=== PATIENT | female | born 1940 | race Caucasian/White ===

== ENCOUNTER 2024-11-27 13:54 | Emergency (ER) | payer OTHER ==
[~2024-11-27] VITALS: Ht 167.6 cm; Wt 61.9 kg
[2024-11-27 14:05] VITALS: TEMP 97.6
--- NOTE | 2024-11-27 14:59 | Physician Documentation ---
History of Present Illness ~ Chief Complaint: Mechanical Fall Stated Complaint: TAILBONE PAIN Time Seen by MD: 14:18 Mode of Arrival: Ambulatory HPI 83-year-old female presents to the ED with a complaint of a fall one week ago. States she fell on her tailbone. She thought the pain would go away however it has persisted and therefore she presents to the ED for evaluation. He has been using a Voltaren to help with the pain and swelling hurts more to sit than it does to stand and she was able to walk. Day of Fall: Nov 27, 2024 Tetanus within 5 Years?: No Medication Reconciliation Allergies: Coded Allergies: cefaclor (Verified Allergy, Unknown, 11/27/24) meperidine (Verified Allergy, Unknown, 11/27/24) morphine (Verified Allergy, Unknown, 11/27/24) Scheduled Lidocaine (Lidoderm), 1 PATCH TOP DAILY Review of Systems All Other Systems at this time: Reviewed and Negative ROS As stated above in the HPI, otherwise all systems are reviewed and negative. Physical Exam Vital Signs: Temperature: 97.6, Source: Temporal, Heart Rate: 87, Respiratory Rate: 18, BP: 158/74, Pulse Oximetry: 98, Weight: 61.900 Physical Exam General: Alert, no apparent distress. HEENT: PERRL, EOMI, no injection, moist mucous membranes. Neck: Full range of motion. Cardiovascular: Regular rate and rhythm, no murmurs. Gastrointestinal: Soft, nontender, nondistended. Bowels sounds present. back: tender the lumbosacral region Neurologic: Oriented x4. Psychiatric: Normal mood and affect. Skin: Normal color, warm and dry. No edema, no ecchymosis. Progress Results/Orders Results/Orders Vital Signs 11/27/24 11/27/24 14:05 15:32 Temp 97.6 Pulse 87 82 Resp 18 16 B/P (MAP) 158/74 164/95 (118) Pulse Ox 98 94 O2 Flow Rate 0 Medical Decision Making Findings Patient's x-ray does not show any signs of acute fracture. I am going to advise the patient to continue with her home care treatment using Voltaren and I will prescribe her some lidocaine patch Differential Dx:Considerations: Include: Closed head injury, Cardiac injury, Fracture(s), Intraabdominal injury, Pneumothorax, Cerebral contusion, Pulmonary contusion, Spine injury, Tracheal injury, Urological injury, Vascular injury, Abrasion(s), Contusion(s), Foreign body(s), Hematoma(s), Laceration(s), Encephalopathy, Other Departure Disposition: HOME / SELF CARE / HOMELESS Impression: Primary Impression: Fall Discharge Instructions: Fall Prevention in the Home, Adult, [id number] Referrals: NO PRIMARY CARE PROVIDER (PCP) Prescriptions Lidocaine (Lidoderm) 5 % Adh..patch 1 PATCH TOP DAILY for 30 Days, #10 PATCH 0 Refills may wear up to 12 hours Prov: YAMIL HARRISON NP 11/27/24 Signature Scribe Signature: g Attestation: The note accurately reflects work and decisions made by me.Yamil Vences NP 11/27/24 20:48 YAMIL HARRISON NP Nov 27, 2024 14:59
--- NOTE | 2024-11-27 15:13 | RADIOLOGY REPORT ---
DI SACRUM COCCYX HISTORY: fall TECHNICAL DATA: Frontal, Jolly and lateral views were obtained of the sacrum and coccyx. COMPARISON: None FINDINGS: No fracture or focal abnormality is demonstrated involving the sacrum. The sacral neural foramina jorge ear symmetric. There is no distraction or displacement of the coccygeal segments. The sacroiliac join ts appear normal. IMPRESSION: No acute fracture radiographs of the sacrum and coccyx.
[2024-11-27] MEDS ORDERED: LIDO700A32 TOP (15:20)
[2024-11-27 15:32] VITALS: BP 164/95; PULSE 82; RESP 16; O2SAT 94
== END 2024-11-27 15:34 | disposition home or self-care (01) ==
LOC: ER 13:55
DX: M53.3 Sacrococcygeal disorders, not elsewhere classified (principal); Z88.1 Allergy status to other antibiotic agents; Z88.5 Allergy status to narcotic agent; W18.39XA Other fall on same level, initial encounter; Y93.89 Activity, other specified; Y92.89 Other specified places as the place of occurrence of the external cause; Y99.8 Other external cause status
CPT/HCPCS: 72220; 99284